=== PATIENT | female | born 2000 | race Caucasian/White ===

== ENCOUNTER 2021-01-18 07:04 | Emergency (ER) | payer OTHER ==
[~2021-01-18] VITALS: Ht 157.5 cm; Wt 77.2 kg
[2021-01-18 07:24] VITALS: BP 156/82
--- NOTE | 2021-01-18 07:51 | RAD ---
XR EXAM OF ANKLE_LEFT 3V History: Pain, trauma. Comparison: None. Technique: 3 views of the left ankle. Findings: A tiny rounded ossific density projects at the medial malleolus tip. No fracture or dislocation. The ankle mortise and talar dome are intact. No significant degerative changes. Lateral ankle soft tissue swelling. Impression: 1. Lateral ankle swelling without fracture or dislocation. 2. Tiny ossific body at the medial malleolar tip may represent sequela of age-indeterminate avulsion injury. Electronically signed by: Zane Arechiga MD (01/18/2021 7:49 AM) [facility]
--- NOTE | 2021-01-18 07:58 | RAD ---
XR FOOT_LEFT 3 VIEWS History: Fall, foot pain Comparison: None. Technique: 3 views the left foot. Findings: Osseous mineralization is normal. No fracture or dislocaton. The Lisfranc is normally aligned. No sig nificant degerative changes. Soft tissues are unremarkable. Impression: 1. No acute osseous abnormality of the left foot. Electronically signed by: Zane Arechiga MD (01/18/2021 7:56 AM) [facility]
--- NOTE | 2021-01-18 08:15 | PHYS DOC ---
Past History Past Surgical History: Tonsillectomy Additional Smoking Information: VAPE NICOTINE Alcohol Use: Rarely Adult General Chief Complaint Chief Complaint: ANKLE PROBLEM HPI HPI Patient is a 20-year-old female who presents to the emergency room complaining of left ankle and foot pain. Patient states that she missed 2 steps yesterday and her ankle twisted. She has been having pain since that time. She has been able to walk on it however it is very painful. She has been elevating it and resting it at home. She states this did not help. She has been using crutches this morning. She states pain is an achy throbbing pain. She is constant pain but it is better with rest. Worse with any kind movement. She is able to move her toes and has intact sensation. She states the swelling has not gotten any better. Review of Systems Review of Systems Complete ROS is negative unless otherwise documented in HPI Allergies Allergies Allergies Coded Allergies Type Severity Reaction Last Updated Verified doxycycline Allergy Unknown throat swelling 01/18/21 Yes Physical Exam Physical Exam General: Awake, alert, NAD. Well Nourished, well hydrated. Cooperative HEENT: Atraumatic, EOMI, PERRL, airway patent, moist oral mucosa Neck: Supple, trachea midline Respiratory: CTA bilaterally, normal effort, no wheezing/crackles CV: RRR, no murmur, cap refill <2 GI: Soft, nondistended, nontender, no masses MSK: Left ankle: Swelling along the lateral ankle with tenderness to the lateral malleolus, 2+ DP pulse, intact range of motion and sensation distal to the injury Skin: Warm, dry, intact Neuro: A&O x3, speech NL, sensory and motor grossly intact, no focal deficits Psych: Normal affect, normal mood, not suicidal or homicidal Current Patient Data Vital Signs Vital Signs Date Time Temp Pulse Resp B/P (MAP) Pulse Ox O2 Delivery O2 Flow Rate FiO2 01/18/21 07:24 96.2 94 18 156/82 97 EKG EKG [] Radiology/Procedures Radiology/Procedures [] Heart Score C/O Chest Pain: N/A Risk Factors: Risk Factors: DM, Current or recent (<one month) smoker, HTN, HLP, family history of CAD, obesity. Risk Scores: Risk Factors: DM, Current or recent (<one month) smoker, HTN, HLP, family history of CAD, obesity. Course & Med Decision Making Course & Med Decision Making Pertinent Labs and Imaging studies reviewed. (See chart for details) Patient is 20-year-old female who presents to the emergency room complaining of ankle and foot pain. Patient is well-appearing on exam. She does have swelling and tenderness to her ankle. X-rays were done and are normal at this time. Patient will be wrapped and will follow up with her primary care physician. Patient's test results and vitals while in the ED were fully reviewed and discussed with the patient. Patient is stable and at this time does not need admission to the hospital. We have discussed strict return precautions and the importance of following up with their Primary Care Physician. Patient stated understanding and was given an opportunity to ask any questions. Patient is in agreement with plan. Dragon Disclaimer Dragon Disclaimer This electronic medical record was generated, in whole or in part, using a voice recognition dictation system. Departure Departure: Impression: Primary Impression: Ankle sprain Disposition: HOME / SELF CARE / HOMELESS Condition: STABLE Referrals: GUILLE VÁZQUEZ DO (PCP) Patient Instructions: Ankle Sprain, Form - Excuse from Work, School, or Physical Activity POP TOVAR MD Jan 18, 2021 08:15
== END 2021-01-18 08:25 | disposition home or self-care (01) ==
LOC: ER 07:04
DX: S93.402A Sprain of unspecified ligament of left ankle, initial encounter (principal); F17.220 Nicotine dependence, chewing tobacco, uncomplicated; Z88.1 Allergy status to other antibiotic agents; X50.9XXA Other and unspecified overexertion or strenuous movements or postures, initial encounter; Y93.89 Activity, other specified; Y92.89 Other specified places as the place of occurrence of the external cause; Y99.8 Other external cause status
CPT/HCPCS: 73610; 73630; 99284